=== PATIENT | female | born 1935 | race Caucasian/White ===

== ENCOUNTER → 2024-01-21 10:34 | Outpatient (REF) | payer OTHER, SELFPAY | LOC: WDC 10:34 | PROVIDERS: ATTENDING PHYSICIAN Nurse Practitioner | DX: Z12.31 Encounter for screening mammogram for malignant neoplasm of breast (principal) | CPT/HCPCS: 77063; 77067 ==

== ENCOUNTER → 2024-08-02 06:47 | Outpatient (REF) | payer OTHER, SELFPAY | LOC: PAVMRI 06:47 | PROVIDERS: ATTENDING PHYSICIAN Physical Medicine & Rehabilitation; FAMILY PHYSICIAN Nurse Practitioner | DX: M48.062 Spinal stenosis, lumbar region with neurogenic claudication (principal) | CPT/HCPCS: 72148 ==

== ENCOUNTER 2024-11-07 12:29 | Emergency (ER) | payer OTHER, SELFPAY ==
[2024-11-07 12:31] VITALS: BP 157/69
--- NOTE | 2024-11-07 14:01 | ED.GENMED ---
History of Present Illness
General
Chief Complaint: Skin Problem
Source: patient
Exam Limitations: none
Time Seen by Provider: 11/07/24 13:49
History of Present Illness
History of Present Illness:
89-year-old female history of eczema usually treated with topical steroids she is run out, states she can get a refill because she ran out too soon, she has an itchy burning rash on her arms and her back using calamine with some relief, no fevers no
nausea or vomiting
Past History
Past History
ED Past Medical History: Asthma, HTN, Hypercholesterolemia, Hypothyroidism, Other (Lumbar Compression Fractures, DJD) and Other (Eczema)
ED Past Surgical History: None
Social History
Tobacco: Non-smoker
Alcohol: Daily (Wine or cocktail one glass)
Personal:
Living: with family
Review of Systems
Review of Systems
All Other Systems: Not applicable
Constitutional: Denies fever
Respiratory: Reports no symptoms
Cardiac: Reports no symptoms
Skin: Reports itching and rash
Phy Exam
Physical Exam
Physical Exam:
Physical Exam
General: no apparent distress, not acutely ill
Neck: No jaundice
Heart: Regular
Lungs: No wheezing
Neuro: alert and oriented. no focal neurological deficits
Skin: Erythematous minimally warm patches and plaques on her back and extensor surface of her arm
Psychiatric: well kept. interactive and cooperative
Extremities: no edema.
Course
Orders/Labs/Results
Orders:
Orders
11/07/24 13:59
Prednisone [Deltasone] 50 mg PO NOW STA
Vital Signs
Initial and Last Documented VS:
Initial Vital Signs
Temp Pulse Resp BP Pulse Ox
97.7 F 57 18 157/69 98
11/07/24 12:31 11/07/24 12:31 11/07/24 12:31 11/07/24 12:31 11/07/24 12:31
Last Documented Vital Signs
Temp Pulse Resp BP Pulse Ox
97.7 F 57 18 157/69 98
11/07/24 12:31 11/07/24 12:31 11/07/24 12:31 11/07/24 12:31 11/07/24 12:31
MDM/Problems Addressed
Differential Diagnosis Includes:
Dermatitis eczema did not believe she has acute cellulitis
MDM/Problems Addressed:
Rash
Chronic conditions affecting care:
Eczema
Acute Exacerbation and/or Progression of Chronic Illness:
Eczema
*Pulse Oximetry
Patient hypoxic: no
*Critical Care Note
Total Time (30-74mins, 75-104mins- exclusive of procedures): Not Applicable
Update Note
Update Note:
Will give her a short burst of p.o. steroids continue to topical hydration cream follow-up PCP and dermatology
ED Attending Note
-
Portions of this chart may have been created with voice recognition software.� Occasional wrong word or��sound alike� substitutions may have occurred due to the inherent limitations of voice recognition software.
Discharge Plan
Departure
Patient Disposition: Home (Routine Discharge)
Date of Disposition: 11/07/24
Time of Disposition: 13:59
Patient with high blood pressure during this ER visit?: No
Condition: Good
Discharge Problem:
Eczema
Instructions: Skin Rash (DC), Wound Care (DC)
Prescriptions:
New
prednisone 20 mg tablet
40 mg PO DAILY Qty: 8 0RF
No Action
amlodipine 5 MG tablet
5 mg PO DAILY Qty: 10 0RF
prednisone 20 MG tablet
40 mg PO DAILY Qty: 10 0RF
Referrals:
Leena Delgado CRNP [Family Provider] -
Glenny Galvan MD [Non-Admitting Privileges] - Next open appointment
Activity Restrictions/Additional Instructions:
Start steroids tomorrow as prescribed follow-up with your [employer] dispatcher and primary care provider
Interventions
Interventions:
*Risk Screen - Suicide Last Done: 11/07/24 12:31
*Neglect/Abuse Screening Last Done: 11/07/24 12:31
Discharge Date and Time
Print Language: LITHUANIAN
[2024-11-07] MEDS: DELTASONE 50 MG PO (14:08)
[2024-11-07 14:16] VITALS: BP 131/70
== END 2024-11-07 14:17 | disposition home or self-care (01) ==
LOC: EMR 12:29
PROVIDERS: EMERGENCY PHYSICIAN Emergency Medicine; FAMILY PHYSICIAN Nurse Practitioner
DX: L30.9 Dermatitis, unspecified (principal); J45.909 Unspecified asthma, uncomplicated; I10 Essential (primary) hypertension; E78.00 Pure hypercholesterolemia, unspecified; E03.9 Hypothyroidism, unspecified
CPT/HCPCS: 99283

== ENCOUNTER → 2025-02-09 17:02 | Outpatient (REF) | payer OTHER, SELFPAY | LOC: WDC 17:02 | PROVIDERS: ATTENDING PHYSICIAN Nurse Practitioner | DX: Z12.31 Encounter for screening mammogram for malignant neoplasm of breast (principal) | CPT/HCPCS: 77063; 77067 ==